=== PATIENT | female | born 1950 | race Caucasian/White ===

== ENCOUNTER → 2016-09-11 | Day surgery (SDC) | payer MEDICARE, OTHER ==
[~2016-09-11] VITALS: Ht 160 cm; Wt 85.8 kg
[~2016-09-11] MED LIST: ALLEGRA180 MG PO; CALCIUM 600 +1 EAC3 PO; COREG25 MG PO; COZAAR25 MG PO; CPAP INH; FIBERCON1 TAB PO; FISH OIL 1,2001 EAC2 PO; K-TAB 10MEQ10 MEQ PO; LASIX20 MG PO; LIPITOR80 MG PO; MAGNESIUM400 M1 PO; MECLIZINE HCL12.5 MG PO; PRESERVISION A1 EAC2 PO; PRILOSEC20 MG PO; SPIRONOLACTONE25 MG PO; TIKOSYN250 MCG PO; VITAMIN D-32000 UNI1 PO; XARELTO20 MG PO; ZOLOFT50 MG PO
== END | disposition disaster alternative care site (69) ==
LOC: GPOC 09-08 08:00
PROC: 0DB98ZX Excision of Duodenum, Via Natural or Artificial Opening Endoscopic, Diagnostic (ICD-10-PCS; principal; 2016-09-11)
PROC: 0DB68ZX Excision of Stomach, Via Natural or Artificial Opening Endoscopic, Diagnostic (ICD-10-PCS; 2016-09-11)
PROC: 0DBE8ZX Excision of Large Intestine, Via Natural or Artificial Opening Endoscopic, Diagnostic (ICD-10-PCS; 2016-09-11)
DX: K31.7 Polyp of stomach and duodenum (principal); K31.9 Disease of stomach and duodenum, unspecified; K57.30 Diverticulosis of large intestine without perforation or abscess without bleeding; K64.4 Residual hemorrhoidal skin tags; K64.8 Other hemorrhoids; G35 Multiple sclerosis; M19.90 Unspecified osteoarthritis, unspecified site; K21.9 Gastro-esophageal reflux disease without esophagitis; F32.9 Major depressive disorder, single episode, unspecified; F41.9 Anxiety disorder, unspecified; E78.00 Pure hypercholesterolemia, unspecified; I10 Essential (primary) hypertension; I48.91 Unspecified atrial fibrillation; G47.30 Sleep apnea, unspecified; Z85.828 Personal history of other malignant neoplasm of skin; Z99.89 Dependence on other enabling machines and devices; Z98.41 Cataract extraction status, right eye; Z98.42 Cataract extraction status, left eye; Z98.890 Other specified postprocedural states; Z88.2 Allergy status to sulfonamides; Z88.1 Allergy status to other antibiotic agents
CPT/HCPCS: J2001; J7030